=== PATIENT | female | born 1990 | race Caucasian/White ===

== ENCOUNTER → 2019-09-27 08:09 | Outpatient (POV) | payer OTHER, SELFPAY | PROVIDERS: Visit Provider Dermatology | DX: Z00.00 Encounter for general adult medical examination without abnormal findings (principal) ==

== ENCOUNTER → 2020-01-17 08:29 | Outpatient (POV) | payer OTHER, SELFPAY | PROVIDERS: PCP Physician Assistant; Visit Provider Physician Assistant | DX: Z00.00 Encounter for general adult medical examination without abnormal findings (principal) ==

== ENCOUNTER 2023-12-17 06:37 | Emergency (ER) | payer OTHER, SELFPAY ==
[2023-12-17 06:38] VITALS: BP 111/76; PULSE 87; RESP 18; TEMP 36.8; O2SAT 99; BMI 24.3
[2023-12-17 06:40] VITALS: BP 111/76; PULSE 86; RESP 18; O2SAT 99
--- NOTE | 2023-12-17 06:52 | XR_ITS ---
FINAL REPORT CLINICAL HISTORY: fall, ankle pain COMPARISON: None FINDINGS: LEFT ANKLE: Three views of the left ankle were obtained. There is no acute fracture or dislocation. The joint spaces and mortise are intact. There is no soft tissue abnormality. IMPRESSION: No acute bony abnormality. Reviewed, Interpreted and Dictated by Carlos Hammonds III, MD Transcribed by Patti Ward Authenticated and . [facility]
--- NOTE | 2023-12-17 06:52 | CT_ITS ---
FINAL REPORT CLINICAL HISTORY: fall forehead hematoma COMPARISON: None FINDINGS: Axial images of the head were obtained without contrast. Coronal and sagittal reformatted images were also obtained.This study was performed with techniques to keep radiation doses as low as reasonably achievable (ALARA). Individualized dose reduction techniques using automated exposure control or adjustment of mA and/or kV according to the patient's size were employed. There is streak artifact from implanted dental devices, and piercings which cannot be removed. There is no evidence of intracranial hemorrhage or mass. The ventricular size is within normal limits. There is no evidence of shift of the midline structures. No abnormal extra axial fluid collection is identified. No skull abnormality is seen on the bone window images. IMPRESSION: No acute intracranial abnormality. Reviewed, Interpreted and Dictated by Carlos Hammonds III, MD Transcribed by Patti Ward Authenticated and [facility]
--- NOTE | 2023-12-17 06:55 | HMH.EDGENADL ---
Discharge Plan Disposition Patient Disposition: Home, Self-Care Chief Complaint: Fall Prescriptions Prescriptions: No Action duloxetine 60 mg capsule,delayed release(DR/EC) PO Patient Comments: TAKE 1 CAPSULE BY MOUTH EVERY DAY FOR 90 DAYS Referrals Follow up/Referrals: Provider,Referral, [Referring] - See instructions Activity Restrictions/Add. Instructions Additional Instructions/Restrictions: At this time it was felt you are safe to be discharged home. If new or worsening symptoms please do not hesitate to return the emergency department. If symptoms persist please follow-up with your family doctor as you are able. With respect to your concussion there is nothing in particular to do except for advance your activity as you are able. Do not try and overdo things. Clinical Impressions Clinical Impression: Fall, Ankle sprain, Forehead trauma, Concussion Discharge ED Provider: Andrew Lazaro General Adult HPI General Chief complaint: Fall Stated complaint: Fall Time Seen by Provider: 12/17/23 06:45 Mode of Arrival: Wheelchair Source of Information: Patient Limitations: No Limitations Description of Symptoms (Recalled from ER Triage Doc. 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 Patient rolled her ankle while walking on flat, even parking lot surface. This caused her to fall. Patient does not remember hitting her head; however, she has an abrasion to her right forehead area. No neuro deficit. Patient was able to stand up on her own, but was unable to bear weight on her left ankle. Only complains of pain to her left ankle at this time. History of Present Illness HPI narrative: Patient is a 33-year-old female with no pertinent past medical history who presents emergency department for evaluation of traumatic injury sustained in a fall. Patient was walking on her way into work, it is unknown to her whether she passed out or whether she tripped on her ankle and hit her head and knocked herself out. She is complaining of left ankle pain with limited ability to bear weight and has a forehead hematoma however denies headache. No other acute complaints at this time. Related Data Home Medications Medication Instructions Recorded Confirmed duloxetine 60 mg capsule,delayed mg PO 10/01/23 10/01/23 release Allergies Allergy/AdvReac Type Severity Reaction Status Date / Time No Known Allergies Allergy Verified 10/01/23 14:17 [facility] Disclaimer: The information contained in this section may have been updated after the patient was seen, as this information can be updated by other users. Social History Smoking Status: Never smoker alcohol intake: never current occupational status: employed Travel in the last 8 weeks: None ROS Obtained: Yes Systems reviewed as appropriate & no additional complaints except as documented Physical Exam General General appearance: alert and in no apparent distress Head Head exam: normocephalic and other (Right forehead abrasion with small hematoma) Eye Eye exam: Present PERRL and EOMI ENT ENT exam: Present mucous membranes moist Neck Neck exam: Present normal inspection Chest Chest inspection: Present normal inspection and symmetric chest wall rise Respiratory Respiratory exam: Present normal lung sounds bilaterally; Absent respiratory distress Cardiovascular Cardiovascular exam: Present regular rate and normal rhythm Abdominal Exam Abdominal exam: Present soft; Absent tenderness Extremities Exam Extremities exam: Present normal inspection and other (Tenderness left medial malleolus and posterior malleolus) Neurological Exam Neurological exam: Present alert and CN II-XII intact; Absent motor sensory deficit Psychiatric Psychiatric exam: Present normal affect Skin Skin exam: Present warm and dry Medical Decision Making Baljinder Inquiry Pt receiving controlled substance: No Vital Signs: 12/17/23 06:38 12/17/23 06:40 12/17/23 07:00 Temperature 98.3 F Temperature Source Oral Pulse Rate 86 71 Pulse Rate [Left] 87 Respiratory Rate 18 18 Blood Pressure 111/76 104/69 L Blood Pressure [Right Arm] 111/76 Blood Pressure Mean 83 73 Blood Pressure Mean [Right Arm] 87 Blood Pressure Source [Right Arm] Automatic Cuff Blood Pressure Position [Right Arm] Sitting 02 Sat by Pulse Oximetry 99 99 100 Oxygen Delivery Method Room Air Room Air 12/17/23 09:12 Temperature Temperature Source Pulse Rate 73 Pulse Rate [Left] Respiratory Rate Blood Pressure 123/75 Blood Pressure [Right Arm] Blood Pressure Mean 106 Blood Pressure Mean [Right Arm] Blood Pressure Source [Right Arm] Blood Pressure Position [Right Arm] 02 Sat by Pulse Oximetry 96 Oxygen Delivery Method Room Air Lab Data Lab Results 12/17/23 08:00: WBC 4.3 L, RBC 4.32, Hgb 13.9, Hct 43.7, MCV 101.2 H, MCH 32.3 H, MCHC 31.9, RDW 12.7, Plt Count 283, MPV 8.1, Neut % (Auto) 58.2, Lymph % (Auto) 29.8, [place] % (Auto) 5.4, Eos % (Auto) 4.7, Baso % (Auto) 1.9, Neut # (Auto) 2.5, Lymph # (Auto) 1.3, [place] # (Auto) 0.2, Eos # (Auto) 0.2, Baso # (Auto) 0.1, Sodium 137, Potassium 3.9, Chloride 106, Carbon Dioxide 30, Anion Gap 4.9 L, BUN 15, Creatinine 0.80, Estimated Creat Clear 117, Estimated GFR 84, Est GFR ( Amer) 101, Glucose 97, Calcium 9.1, Total Bilirubin 1.0, AST 31, ALT 21, Alkaline Phosphatase 48, Total Protein 7.0, Albumin 4.1, Globulin 2.9, Albumin/Globulin Ratio 1.4, Serum HCG, Qual Negative 12/17/23 08:00 12/17/23 08:00 Orders (Tests/Meds): ED MEDICATIONS Discontinued Medications Generic Name Dose Route Start Last Admin Trade Name Kobyq PRN Reason Stop Dose Admin Acetaminophen 1,000 mg 12/17/23 07:02 12/17/23 07:36 Acetaminophen 500mg Tab PO 12/17/23 07:03 1,000 mg ONCE ONE Administration Lactated Ringer's 1,000 mls @ 999 mls/hr 12/17/23 06:52 12/17/23 07:36 Lactated Ringer's 1000 Ml Bag IV 12/17/23 07:52 999 mls/hr .Q1H1M ONE Administration ORDERS Category Date Time Status CT head/brain wo con Stat Cat Scan 12/17/23 06:52 Completed Ankle XR - Left minimum 3 Views [XR ankle LT min 3V] Exams 12/17/23 06:52 Completed Stat CBC w/Auto Diff [Complete Blood Count Auto Diff] Stat Lab 12/17/23 08:00 Completed CMP [Comprehensive Metabolic Panel] Stat Lab 12/17/23 08:00 Completed HCG Qualitative, Serum Stat Lab 12/17/23 08:00 Completed EKG Request [ECG Request] Stat Y 12/17/23 06:52 Ordered ECG Data Tracing #1: Independently interpreted by me, rate is 73, rhythm is regular, axis is normal, no ST elevation in anatomical contiguous leads, QTc 413, no high degree AV block, no dagger Q waves in the lateral leads, no evidence of Brugada, no delta wave. Medical Decision Narrative: In summary patient is a 33-year-old female with past medical history described above who presents emergency department for evaluation of traumatic injury sustained in a fall and syncope versus being knocked out. Patient is hemodynamically stable nontoxic-appearing upon arrival, afebrile. Differential includes ankle fracture, ankle sprain, syncope, traumatic loss of consciousness with retrograde amnesia, among others. Workup will be conducted with hematologic labs, EKG, plain film left ankle, CT head without IV contrast. Initial inventions include Tylenol, crystalloid bolus. Workup reviewed by me, hematologic labs are nonactionable, patient is not . CT imaging informally interpreted by me, no large intra-axial hemorrhage or midline shift. Formal read shows no acute intracranial abnormality and no acute bony abnormality on plain film of the ankle. Upon repeat evaluation patient was well-appearing at bedside, Tdap is up-to-date. Patient was amatory with difficulty and was provided crutches and appropriate for discharge at this time. Critical Care Critical Care Time Critical Care Time: No
[2023-12-17 07:00] VITALS: BP 104/69; PULSE 71; O2SAT 100
--- NOTE | 2023-12-17 07:07 | ECG_ITS ---
APPROVED REPORT Exam: Resting ECG HR:73 bpm ECG Measurements Heart Rate 73 AXES ND 138 P 77 QRSd 100 QRS 92 QT 387 T 68 QTc 413 Conclusion SINUS RHYTHM BORDERLINE RIGHT AXIS DEVIATION [QRS AXIS > 90] BORDERLINE ECG Electronically signed by : SARY ABBOTT, 12/17/2023 15:14:37
[2023-12-17] MEDS: LACTATED RINGERS 1000ML 1,000 ML 999 ML IV (07:36)
[2023-12-17] MEDS: ACETAMINOPHEN 500MG TAB 1000 MG PO (07:36)
--- NOTE | 2023-12-17 07:49 | PC.NURSE ---
called lab for blood draw
--- NOTE | 2023-12-17 07:57 | PC.NURSE ---
lab at the bedside
[2023-12-17 08:10] LABS: Basophils # 0.1 K/mm3 (0-0.2); Basophils % 1.9 % (0.1-2.0); Eosinophils # 0.2 K/mm3 (0.0-0.4); Eosinophils % 4.7 % (0.1-12.0); Hematocrit 43.7 % (37.0-47.0); Hemoglobin 13.9 g/dL (12.2-16.2); Lymphocytes # 1.3 K/mm3 (0.7-4.5); Lymphocytes % 29.8 % (10-50); Mean Corpuscular HGB Conc 31.9 g/dL (31.8-35.4); Mean Corpuscular Hemoglobin 32.3 pg (27.0-31.2); Mean Corpuscular Volume 101.2 fl (81-99); Mean Platelet Volume 8.1 fl (7.4-10.4); Monocytes # 0.2 K/mm3 (0.1-1.0); Monocytes % 5.4 % (1.7-9.3); Neutrophils # 2.5 K/mm3 (1.8-7.8); Neutrophils % 58.2 % (37.0-80.0); Platelet Count 283 K/mm3 (142-424); Red Blood Count 4.32 M/mm3 (4.20-5.40); Red Cell Distribution Width 12.7 % (11.5-17.5); White Blood Count 4.3 K/mm3 (4.8-10.8)
--- NOTE | 2023-12-17 08:20 | PC.NURSE ---
Rounded on patient, assisted patient to restroom at this time.
--- NOTE | 2023-12-17 08:24 | PC.NURSE ---
updated pt about waiting on her hcg level before scan, lab reports that it will be resulted in approx 6 mins.
[2023-12-17 08:35] LABS: Chloride 106 mmol/L (98-107); Potassium 3.9 mmoL/L (3.5-5.1); Sodium 137 mmol/L (136-145)
[2023-12-17 08:37] LABS: Alanine Aminotransferase 21 U/L (12-78); Blood Urea Nitrogen 15 mg/dl (7-17); Creatinine Clearance Estimated 117 mL/min (50-200); Estimated Glomerular Filt Rate 84 ml/min (>60); GFR (African American) 101 ML/MIN (>60)
[2023-12-17 08:38] LABS: Albumin Level 4.1 g/dl (3.5-5.0); Albumin/Globulin Ratio 1.4 (1.1-1.8); Alkaline Phosphatase 48 U/L (38-126); Anion Gap 4.9 mEq/L (5-15); Aspartate Amino Transferase 31 U/L (14-36); Calcium 9.1 mg/dl (8.4-10.2); Carbon Dioxide 30 mmol/L (22.0-30.0); Globulin 2.9 g/dL (1.3-3.2); Glucose 97 mg/dl (74-100)
[2023-12-17 08:39] LABS: HCG Qualitative, Serum Negative (Negative)
[2023-12-17 09:12] VITALS: BP 123/75; PULSE 73; O2SAT 96
--- NOTE | 2023-12-17 09:29 | PC.NURSE ---
updated pt on POC.
--- NOTE | 2023-12-17 10:17 | PC.NURSE ---
Cornelius wrap applied to left ankle, pt tolerated well and reports no complaints. Waiting on DC instructions
[2023-12-17 10:23] VITALS: BP 108/73; PULSE 71; RESP 17; TEMP 36.8; O2SAT 100
== END 2023-12-17 10:23 | disposition home or self-care (01) ==
PROVIDERS: Emergency Provider Emergency Medicine; PCP Family Medicine
DX: S06.0X1A Concussion with loss of consciousness of 30 minutes or less, initial encounter (principal); S09.93XA Unspecified injury of face, initial encounter; S93.402A Sprain of unspecified ligament of left ankle, initial encounter; W01.10XA Fall on same level from slipping, tripping and stumbling with subsequent striking against unspecified object, initial encounter
CPT/HCPCS: 36415; 70450; 73610; 80053; 84703; 85025; 93005; 96360; 99285

== ENCOUNTER 2024-02-16 16:03 | Outpatient (POV) | payer OTHER, SELFPAY | END 2024-02-16 23:59 | disposition home or self-care (01) | LOC: SC 16:03 | PROVIDERS: PCP Family Medicine; Visit Provider Dermatology | DX: Z00.00 Encounter for general adult medical examination without abnormal findings (principal) ==

== ENCOUNTER 2024-02-18 07:27 | Outpatient (CLI) | payer OTHER, SELFPAY ==
[2024-02-18 08:01] LABS: Chloride 105 mmol/L (98-107); Potassium 3.9 mmoL/L (3.5-5.1); Sodium 139 mmol/L (136-145)
[2024-02-18 08:03] LABS: Blood Urea Nitrogen 13 mg/dl (7-17); Estimated Glomerular Filt Rate 84 ml/min (>60); GFR (African American) 101 ML/MIN (>60)
[2024-02-18 08:04] LABS: Alanine Aminotransferase 19 U/L (12-78); Albumin Level 4.2 g/dl (3.5-5.0); Albumin/Globulin Ratio 1.4 (1.1-1.8); Alkaline Phosphatase 40 U/L (38-126); Anion Gap 9.9 mEq/L (5-15); Aspartate Amino Transferase 30 U/L (14-36); Bilirubin,Total 1.1 mg/dl (0.2-1.3); Carbon Dioxide 28 mmol/L (22.0-30.0); Cholesterol 170 mg/dl (140-200); Total Protein,Serum 7.2 g/dl (6.3-8.2); Triglycerides 71 mg/dl (30-150); VLDL Cholesterol 14 mg/dL (0-40)
[2024-02-18 08:05] LABS: Calcium 9.2 mg/dl (8.4-10.2); Glucose 114 mg/dl (74-100); HDL Cholesterol 84 mg/dl (40-60)
[2024-02-18 08:16] LABS: Direct LDL Cholesterol 66.14 mg/dL (100-129)
[2024-02-18 08:19] LABS: Basophils # 0.1 K/mm3 (0-0.2); Eosinophils # 0.2 K/mm3 (0.0-0.4); Eosinophils % 2.9 % (0.1-12.0); Hematocrit 41.6 % (37.0-47.0); Lymphocytes # 1.5 K/mm3 (0.7-4.5); Lymphocytes % 27.8 % (10-50); Mean Corpuscular HGB Conc 31.3 g/dL (31.8-35.4); Mean Corpuscular Hemoglobin 31.4 pg (27.0-31.2); Mean Corpuscular Volume 100.3 fl (81-99); Mean Platelet Volume 8.4 fl (7.4-10.4); Monocytes # 0.3 K/mm3 (0.1-1.0); Monocytes % 4.6 % (1.7-9.3); Neutrophils # 3.5 K/mm3 (1.8-7.8); Neutrophils % 63.8 % (37.0-80.0); Platelet Count 227 K/mm3 (142-424); Red Blood Count 4.15 M/mm3 (4.20-5.40); Red Cell Distribution Width 13.2 % (11.5-17.5); White Blood Count 5.5 K/mm3 (4.8-10.8)
[2024-02-18 08:49] LABS: HCG Qualitative, Serum Negative (Negative)
== END 2024-02-18 23:59 | disposition home or self-care (01) ==
LOC: LAB 07:27
PROVIDERS: PCP Family Medicine; Visit Provider Dermatology
DX: L70.0 Acne vulgaris (principal); Z79.899 Other long term (current) drug therapy
CPT/HCPCS: 36415; 80053; 80061; 84703; 85025

== ENCOUNTER 2024-03-15 11:28 | Outpatient (POV) | payer OTHER, SELFPAY ==
[2024-03-15 12:54] LABS: Chloride 105 mmol/L (98-107); Sodium 139 mmol/L (136-145)
[2024-03-15 12:55] LABS: Potassium 4.1 mmoL/L (3.5-5.1)
[2024-03-15 12:57] LABS: Alanine Aminotransferase 23 U/L (12-78); Albumin Level 4.4 g/dl (3.5-5.0); Albumin/Globulin Ratio 1.2 (1.1-1.8); Alkaline Phosphatase 54 U/L (38-126); Anion Gap 9.1 mEq/L (5-15); Aspartate Amino Transferase 40 U/L (14-36); Bilirubin,Total 0.8 mg/dl (0.2-1.3); Blood Urea Nitrogen 19 mg/dl (7-17); Carbon Dioxide 29 mmol/L (22.0-30.0); Cholesterol 205 mg/dl (140-200); Estimated Glomerular Filt Rate 98 ml/min (>60); GFR (African American) 118 ML/MIN (>60); Globulin 3.6 g/dL (1.3-3.2); Triglycerides 132 mg/dl (30-150); VLDL Cholesterol 26 mg/dL (0-40)
[2024-03-15 12:58] LABS: Calcium 9.5 mg/dl (8.4-10.2); Chol/HDL Ratio 3.4 (1-3.5); Glucose 58 mg/dl (74-100); HDL Cholesterol 61 mg/dl (40-60)
[2024-03-15 13:09] LABS: Direct LDL Cholesterol 91.56 mg/dL (100-129)
== END 2024-03-15 23:59 | disposition home or self-care (01) ==
LOC: SC 11:29
PROVIDERS: PCP Family Medicine; Visit Provider Dermatology
DX: Z00.01 Encounter for general adult medical examination with abnormal findings (principal)
CPT/HCPCS: 80053; 80061

== ENCOUNTER 2024-03-15 12:08 | Outpatient (CLI) | payer OTHER, SELFPAY ==
--- NOTE | 2024-03-15 12:23 | CT_ITS ---
FINAL REPORT TECHNIQUE: Thin section axial CT images of the facial bones and sinuses were obtained without contrast. Coronal reformatted images were also obtained.This study was performed with techniques to keep radiation doses as low as reasonably achievable, (ALARA). Individualized dose reduction techniques using automated exposure control or adjustment of mA and/or kV according to the patient''''s size were employed. CLINICAL HISTORY: Nasal congestion; sinusitis pt unable to remove piercings COMPARISON: None FINDINGS: There is no evidence of mucosal thickening. No fluid levels are identified. The ostiomeatal units have an unremarkable appearance. The nasal septum is in the midline. No fracture or acute bony abnormality is identified. IMPRESSION: No focal abnormality identified of the sinuses. Reviewed, Interpreted and Dictated by Carlos Hammonds III, MD Transcribed by Patti Wadr Authenticated and [facility]
== END 2024-03-15 23:59 | disposition home or self-care (01) ==
LOC: RAD 12:09
PROVIDERS: PCP Family Medicine; Visit Provider Nurse Practitioner
DX: J32.9 Chronic sinusitis, unspecified (principal); R09.81 Nasal congestion
CPT/HCPCS: 70486

== ENCOUNTER 2024-04-12 11:57 | Outpatient (POV) | payer OTHER, SELFPAY | END 2024-04-12 23:59 | disposition home or self-care (01) | LOC: SC 11:58 | PROVIDERS: PCP Family Medicine; Visit Provider Dermatology | DX: Z00.00 Encounter for general adult medical examination without abnormal findings (principal) ==

== ENCOUNTER 2024-06-06 12:14 | Emergency (ER) | payer OTHER, SELFPAY ==
[2024-06-06 13:11] VITALS: BP 97/57; PULSE 68; RESP 20; TEMP 36.8; O2SAT 99; BMI 23.8
--- NOTE | 2024-06-06 13:16 | EXP.UTC ---
Discharge Plan Disposition Patient Disposition: Home, Self-Care Condition: Good Prescriptions Prescriptions: New amoxicillin 500 mg capsule 500 mg PO BID 10 Days Qty: 20 0RF No Action duloxetine 60 mg capsule,delayed release(DR/EC) PO Patient Comments: TAKE 1 CAPSULE BY MOUTH EVERY DAY FOR 90 DAYS mupirocin 2 % ointment 1 applic topical BID 21 Days Qty: 22 1RF Rx Instructions: Apply to affected area up to twice daily sulfamethoxazole-trimethoprim [Bactrim DS] 800-160 mg tablet 1 tab PO BID 10 Days Qty: 20 0RF azelastine 137 mcg (0.1 %) spray,non-aerosol See Rx Instructions .ROUTE .COMPLEX Qty: 30 2RF Dose Instruction: INSTILL 1 SPRAY INTO EACH NOSTRIL TWICE DAILY Rx Instructions: INSTILL 1 SPRAY INTO EACH NOSTRIL TWICE DAILY levocetirizine 5 mg tablet See Rx Instructions .ROUTE .COMPLEX Qty: 90 3RF Dose Instruction: TAKE 1 TABLET BY MOUTH EVERY DAY Rx Instructions: TAKE 1 TABLET BY MOUTH EVERY DAY Referrals Follow up/Referrals: Rashaad Esposito MD [Primary Care Provider] - See instructions Activity Restrictions/Add. Instructions Additional Instructions/Restrictions: *Monitor Temp, Over the counter Motrin or Tylenol as directed/as needed Tylenol every 4 hours and Motrin every 6 hours (as long as your family doctor has told you that you can take it) for fever or pain. and straight to ER if unable to lower temp less than 101.0 after medication given *Warm salt water gargles may help to soothe the throat *Throat Lozenges? *Warm fluids like tea with honey may help to soothe the throat? *Sleep elevated *Humidifier/Vaporizer Your throat swab was sent for culture. Those results are typically sent to your primary care. Be sure to follow up in 2-3 days with your family doctor/primary care physician if no improvement so they can review those result and treat if necessary. If you don?t have a primary care doctor, I recommend you get one but in the mean time, you will have to return to a walk in clinic Follow up IMMEDIATELY for new or worsening symptoms or no Noticeable improvement over the next 48-72 hours. 911 for difficulty breathing or swallowing Clinical Impressions Clinical Impression: Pharyngitis Instructions Patient Instructions: Amoxicillin, Sore Throat Print Language Print Language: Romanian Discharge ED Provider: Sharmaine Zayas [facility] General Stated complaint: sore throat,fever, blisters in throat, headache Mode of Arrival: Ambulatory Source of Information: Patient Time Seen by Provider: 06/06/24 13:16 Description of Symptoms (Recalled from Triage Doc. by RN): STREP THROAT S/S HEENT Symptoms (Recalled from RN notes): Yes Resp Symptoms (Recalled from RN notes): No Skin Symptoms (Recalled from RN notes): No MS Symptoms (Recalled from RN notes): No Functional Status (Recalled from RN notes): WNL History of Present Illness Provider Complaint: Patient states that son had strep throat last week and now she feels like she does, states her throat is red, sore, hurts when she swallows and getting blisters on her throat so she came in to get checked Related Data Home Medications ?Medication ?Instructions ?Recorded ?Confirmed duloxetine 60 mg capsule,delayed mg PO 10/01/23 03/23/24 release Previous Rx's ?Medication ?Instructions ?Recorded mupirocin 2 % topical ointment 1 applic topical BID cellulitis 3 04/25/24 weeks #22 grams sulfamethoxazole 800 1 tab PO BID cellulitis 10 days 04/25/24 mg-trimethoprim 160 mg tablet #20 tabs (Bactrim DS) azelastine 137 mcg (0.1 %) nasal See Rx Instructions .Route 05/23/24 spray .COMPLEX #30 mL levocetirizine 5 mg tablet See Rx Instructions .Route 05/23/24 .COMPLEX #90 tabs amoxicillin 500 mg capsule 500 mg PO BID 10 days #20 caps 06/06/24 Allergies Allergy/AdvReac Type Severity Reaction Status Date / Time No Known Allergies Allergy Verified 03/23/24 15:01 Worker's Comp Is this a Worker's Comp case?: No [facility] Disclaimer: The information contained in this section may have been updated after the patient was seen, as this information can be updated by other users. Medical History Deviated nasal septum Chronic eustachian tube dysfunction Hypertrophy of nasal turbinates Left ear pain Sinusitis Nasal congestion Social History Smoking Status: Never smoker alcohol intake: never current occupational status: employed Travel in the last 8 weeks: None ROS Obtained: Yes All systems reviewed & no additional complaints except as documented and Yes Systems reviewed as appropriate & no additional complaints except as documented Constitutional Constitutional: Reports system reviewed and no additional complaints, except as documented, Reports as per HPI and Reports headache(s) ENT Ears, Nose, Mouth, and Throat: Reports system reviewed and no additional complaints, except as documented, Reports as per HPI, Reports headache(s) and Reports sore throat Cardiovascular Cardiovascular: Reports system reviewed and no additional complaints, except as documented and Reports as per HPI Respiratory Respiratory: Reports system reviewed and no additional complaints, except as documented and Reports as per HPI Neurologic Neurologic: Reports headache(s) Physical Exam General General appearance: alert and in no apparent distress ENT ENT exam: Present mucous membranes moist Expanded ENT Exam Throat exam: Present tonsillar erythema Respiratory Respiratory exam: Present normal lung sounds bilaterally; Absent respiratory distress or wheezes Cardiovascular Cardiovascular exam: Present regular rate, normal rhythm and normal heart sounds Neurological Exam Neurological exam: Present alert, oriented X3 and normal gait Medical Decision Making Medical Records Screening: Per USPSTF and CDC recommendations, given the prevalence of disease in our region, it is our hospital?s policy to screen for HIV and viral Hepatitis for all patients aged 18 and over and those with ongoing risk factors. Baljinder Inquiry Pt receiving controlled substance: No Baljinder was queried for this patient: No Vital Signs: 06/06/24 13:11 Temperature 98.2 F Temperature Source Oral Pulse Rate [Left Brachial] 68 Respiratory Rate 20 Blood Pressure [Left Arm] 97/57 L Blood Pressure Mean [Left Arm] 70 02 Sat by Pulse Oximetry 99 Lab Data Lab results reviewed: Yes I reviewed the patient's lab results.
[2024-06-06 13:37] LABS: UTC Strep Screen (Rapid) Negative (Negative)
[2024-06-06 13:40] VITALS: BP 97/57; PULSE 68; RESP 20; TEMP 36.8
== END 2024-06-06 13:45 | disposition home or self-care (01) ==
PROVIDERS: Emergency Provider Nurse Practitioner; PCP Family Medicine
DX: J02.9 Acute pharyngitis, unspecified (principal); R50.9 Fever, unspecified
CPT/HCPCS: 87880; 99204; 99212; G0463

== ENCOUNTER 2024-06-21 10:15 | Outpatient (POV) | payer OTHER, SELFPAY | END 2024-06-21 23:59 | disposition home or self-care (01) | LOC: SC 06-22 06:29 | PROVIDERS: Visit Provider Dermatology | DX: Z00.00 Encounter for general adult medical examination without abnormal findings (principal) ==

== ENCOUNTER 2024-06-21 13:48 | Outpatient (CLI) | payer OTHER, SELFPAY ==
--- NOTE | 2024-06-21 13:50 | XR_ITS ---
FINAL REPORT CLINICAL HISTORY: right knee pain COMPARISON: None FINDINGS: Three views of the right knee reveal no evidence of fracture or dislocation. There is evidence of a prior ACL repair. The bony alignment is normal. The joint spaces are preserved. There is no evidence of joint effusion. No localized soft tissue abnormality is identified. IMPRESSION: No acute abnormality identified. Prior ACL repair. Reviewed, Interpreted and Dictated by Carlos Hammonds III, MD Transcribed by Patti Ward Authenticated and [facility]
== END 2024-06-21 23:59 | disposition home or self-care (01) ==
LOC: RAD 13:48
PROVIDERS: PCP Family Medicine; Visit Provider Orthopaedic Surgery
DX: M25.561 Pain in right knee (principal)
CPT/HCPCS: 73562

== ENCOUNTER 2024-12-16 14:15 | Outpatient (POV) | payer BC, SELFPAY ==
[2024-12-16 14:23] VITALS: BP 104/63; PULSE 79; RESP 16; O2SAT 100; BMI 22.8
--- NOTE | 2024-12-16 14:53 | EXP.PAIN.OV ---
HPI Data of Consult Patient: new to practice Consult date: 12/16/24 Requesting Physician: Urvashi Gomez APRN Primary Care Provider: Rashaad Esposito MD Consult Narrative Reason for consult: Low back pain, left hip pain History of present illness: Ms. Santana is a 34 year old female who presents today as a new patient. 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 Patient rates her pain today a 5 out of 10. Patient states that she has had low back and left hip pain for longer than a year. Patient states that there was no initial injury or trauma that started this pain. She does describe it as a aching sensation that does get worse with certain movements. Patient does state that prolonged sitting or standing does seem to aggravate the symptoms. She does frequently have to change positions multiple times to get any sort of relief. She does state that when it is worse it will go to a sharp sensation that goes all into her buttocks. She denies any radiating symptoms down into the legs. Patient has tried oral medications, heat and ice and topicals with minimal relief. Patient has gone to chiropractor for longer than a year related to this pain. She states that they did state her hips were out of alignment. She states that the chiropractor does help a little however is frequently temporary. Patient has continued physician guided therapy at home for longer than 12 weeks with no additional improvement. Patient denies any previous injection therapy for this pain or surgery history. Her Baljinder has been reviewed and is appropriate. CC: Urvashi Gomez APRN [facility] Disclaimer: The information contained in this section may have been updated after the patient was seen, as this information can be updated by other users. Medical History Deviated nasal septum Chronic eustachian tube dysfunction Hypertrophy of nasal turbinates Left ear pain Sinusitis Nasal congestion Social History Smoking Status: Never smoker alcohol intake: never current occupational status: other Travel in the last 8 weeks: None Review of Systems Review of Systems Review of systems:: pertinent systems reviewed and negative unless documented below Review of systems (narrative): Review of Systems: General: No recent weight changes, no fever, no sleep disturbances Respiratory: No cough, no shortness of air, no recurring pulmonary infections Cardiovascular/peripheral vascular: No chest pain, no palpitations, no edema, no shortness of breath Gastrointestinal: No new onset incontinence, normal bowel movements reported Genitourinary: No new onset incontinence Musculoskeletal: Low back pain, left hip pain, left buttocks pain Psychiatric: [Normal mood/affect] Neurological: [Denies weakness in extremities], [denies balance issues] Meds Home Medications and Allergies Home Medications ?Medication ?Instructions ?Recorded ?Confirmed ?Type duloxetine 60 mg capsule,delayed 60 mg PO DAILY 10/01/23 12/16/24 History release meloxicam 7.5 mg tablet 7.5 mg PO DAILY #30 tabs 07/08/24 12/16/24 Rx methocarbamol 500 mg tablet 500 mg PO TID #42 tabs 12/16/24 Rx New Prescriptions to Start Prescriptions: methocarbamol Urvashi Gomez Allergies Allergy/AdvReac Type Severity Reaction Status Date / Time No Known Allergies Allergy Verified 07/08/24 10:22 Objective Vital signs: Pulse Resp BP Pulse Ox O2 Del Method 79 16 104/63 L 100 Room Air 12/16/24 14:23 12/16/24 14:23 12/16/24 14:23 12/16/24 14:23 12/16/24 14:23 Narrative: Physical Exam: General: Alert and oriented x3, no acute distress, pleasant and cooperative Lungs: Respirations even and unlabored, symmetrical chest expansion Eyes: PERRL Musculoskeletal: Flexion and extension of lumbar [spine] somewhat guarded secondary to pain, [antalgic gait noted] point tenderness along left SI with positive left Ele's, Jojo's, Gaenslen's, compression and distraction exam Neurological: Speech clear, no gross sensory deficit Assessment and Plan *Assessment and plan (1) Sacroiliitis: Status: Acute Category: Medical Code(s): M46.1 - Sacroiliitis, not elsewhere classified (2) Left hip pain: Status: Acute Category: Medical Code(s): M25.552 - Pain in left hip (3) Low back pain: Status: Acute Category: Medical Code(s): M54.50 - Low back pain, unspecified Plan Patient is experiencing worsening pain along the low back and left hip. They did have limited range of motion of the lumbar spine along with point tenderness along left SI joints and a positive left Ele's, Jojo's, Gaenslen's, compression and distraction exam. I did discuss with the patient that I do believe they would benefit from left SI injections. Risk and benefits were discussed with the patient and they would like to proceed forward with this option. Patient has tried and failed conservative therapy including continued at home stretching exercise for longer than 12 weeks that was physician guided from her chiropractor. Patient has had this pain for longer than a year. This will be a diagnostic injection with less than 1 mL of solution injected. If she does have significant relief we will plan on doing additional SI injections in the future. If patient does get relief with multiple injection she may be a candidate for future SI fusion. Patient will be scheduled for left SI injections under fluoroscopy. I will order the patient compounded cream and also send in a 2-week supply of methocarbamol 500 mg 3 times daily as needed. Patient has been instructed to contact the clinic with any concerns before the next appointment. Dr. Pimentel has reviewed this note and agrees with this plan of care. This note was dictated using voice recognition software and make contain errors or omissions. All injections are used with Lidocaine or Bupivacaine and Depo Medrol.
== END 2024-12-16 23:59 | disposition home or self-care (01) ==
PROVIDERS: PCP Family Medicine; Visit Provider Nurse Practitioner Family
DX: M46.1 Sacroiliitis, not elsewhere classified (principal); M25.552 Pain in left hip; M54.50 Low back pain, unspecified
CPT/HCPCS: 99202; G0463

== ENCOUNTER 2025-01-24 13:57 | Day surgery (SDC) | payer BC, SELFPAY ==
[2025-01-24 14:12] VITALS: BP 100/64; PULSE 92; RESP 16; TEMP 36.4; O2SAT 100; BMI 23.6
[2025-01-24] MEDS: BUPIVACAINE 0.25% 10ML INJ 25 MG IJ (14:17)
[2025-01-24 14:18] VITALS: BP 98/50; PULSE 96; RESP 18; O2SAT 98
[2025-01-24] MEDS: LIDOCAINE 1% 5ML PF VIAL 5 ML (14:18)
[2025-01-24] MEDS: DEXAMETHASONE 10MG/ML 1ML VIAL 10 MG (14:18)
[2025-01-24 14:19] VITALS: BP 98/50; PULSE 96; RESP 18; O2SAT 98
--- NOTE | 2025-01-24 14:19 | EXP.PAIN.PRO ---
Procedure Date: 01/24/25 Time: 14:00 Anesthesiologist:: Clayton Osullivan CRNA Complications:: None Pre-procedure Diagnosis:: Left sacroiliitis Post-procedure Diagnosis:: Same Indications for Procedure:: Patient is a very pleasant 34-year-old female who comes our clinic today for a left sacroiliac joint injection of cortisone local anesthetic. Patient describes low lumbar back pain off the midline to the left. Left posterior hip pain. Difficulty transitioning from sitting to standing. She rates her pain 6/10. Procedure Details:: Procedure: Left sacroiliac injection under fluoroscopy Informed consent was obtained and the risk and benefits of the procedure were explained to the patient.~ The patient was taken to the procedure room and noninvasive monitors were placed including noninvasive blood pressure cuff and pulse oximeter.~ The patient was placed prone on the procedure table.~ The~ left hip was cleansed using Betadine as a cleansing solution.~ C-arm fluorosocpy was used to view the left SI joint.~ The skin and subcutaneous tissues were anesthetized using Lidocaine 1.5% and a 25-gauge needle.~ After this, a 22-gauge spinal needle was inserted under fluoroscopic guidance into the inferior aspect of the left SI joint.~ Omnipaque dye was injected and a good spread was seen throughout the joint.~ After this, approximately 5 mL of bupivacaine 0.25% and Depo-Medrol 40 mg was incrementally injected into the sacroiliac joint.~ The patient tolerated the procedure well with no complications.~ The patient was observed in the Pain Clinic for a period of 30-45 minutes, then discharged home neurologically intact.~ Plan and Disposition:: Patient was discharged without incident.
[2025-01-24 14:23] VITALS: BP 105/67; PULSE 99; RESP 16; O2SAT 99
== END 2025-01-24 14:23 | disposition home or self-care (01) ==
PROVIDERS: PCP Family Medicine; Visit Provider Nurse Anesthetist, Certified Registered
DX: M46.1 Sacroiliitis, not elsewhere classified (principal)
CPT/HCPCS: G0260; J1100